=== PATIENT | female | born 1995 | race Caucasian/White ===

== ENCOUNTER 2016-12-26 11:16 | Emergency (ER) | payer BC ==
[~2016-12-26] VITALS: Ht 147.3 cm; Wt 104.5 kg
[~2016-12-26 11:16] MED LIST: BIRTH CONTROL PILLS; CIPRO 100MG TA100 MG PO; CIPRO 500MG TA500 MG PO; FLAGYL500 MG PO; ZOFRAN 4MG T4 MG/TAB PO; [UNRECOGNIZED DRUG - REMARK]
[2016-12-26 11:20] VITALS: BP 136/74; TEMP 99.4
[2016-12-26] MEDS ORDERED: NEXPLANON68 MG ID (11:22)
[2016-12-26 12:09] LABS: HEMOGLOBIN 13.2 g/dl (12.5-16.0); MEAN CELL VOLUME 91 fl (80.0-100.0); MEAN CORPUSCULAR HEMOGLOBIN 31 pg (27.0-31.0); MEAN CORPUSCULAR HGB CONC 34 g/dl (33.0-37.0); MEAN PLATELET VOLUME 10.4 fl (7.4-10.4); PLATELET COUNT 220 K/mm3 (130-400); RED BLOOD COUNT 4.28 M/mm3 (4.10-5.30); REDCELL DISTRIBUTION WIDTH-CV 13.9 % (11.5-14.5); WHITE BLOOD COUNT 5.4 K/mm3 (4.8-10.8)
[2016-12-26 12:11] LABS: ADD PATHOLOGY DIFF REVIEW NO
[2016-12-26 12:23] LABS: ADJUSTED CALCIUM 9.3 mg/dL (8.4-10.2); ALBUMIN 3.9 gm/dL (3.5-5.0); BILIRUBIN,TOTAL 1.5 mg/dL (0.0-1.0); C-REACTIVE PROTEIN 3.3 mg/dL (0.0-0.9); CALCIUM 9.2 mg/dL (8.4-10.2); CREATININE, serum 0.87 mg/dL (0.52-1.25); POTASSIUM 3.8 mmol/L (3.4-5.0); TOTAL PROTEIN 7.2 gm/dL (6.4-8.2)
[2016-12-26 12:29] LABS: BAND 20 % (0-10); EOSINOPHIL 1 % (0-4); NEUTROPHILS 56 % (42.0-75.2); PLATELET ESTIMATE NORMAL (NORMAL); TOTAL CELLS COUNTED 100
[2016-12-26] MEDS ORDERED: CLEOCIN HCL300 MG PO (14:09)
[2016-12-26] MEDS ORDERED: NORCO 325 MG-51 TAB PO (14:09)
[2016-12-26 15:04] VITALS: PULSE 98
[2016-12-30 16:12] LABS: MIC AGAR DILUTION XXX
[2017-01-02] MEDS ORDERED: BACTRIM DS 8001 TAB PO (02:52)
== END 2016-12-26 15:05 | disposition home or self-care (01) ==
LOC: COL.ER 11:16
PROVIDERS: Nurse Practitioner
DX: L02.31 Cutaneous abscess of buttock (principal); Z23 Encounter for immunization
CPT/HCPCS: J3010; Q9967

== ENCOUNTER 2017-08-09 07:55 | Emergency (ER) | payer BC ==
[~2017-08-09] VITALS: Ht 144.8 cm; Wt 100.5 kg
[~2017-08-09 07:55] MED LIST changes: +BACTRIM DS 8001 TAB PO; +CLEOCIN HCL300 MG PO; +NEXPLANON68 MG ID; +NORCO 325 MG-51 TAB PO
[2017-08-09 07:57] VITALS: BP 113/55; TEMP 99.3
[2017-08-09] MEDS ORDERED: PRILOSEC 20MG20 MG PO (08:00)
[2017-08-09] MEDS ORDERED: BACTRIM DS 8001 TAB PO (09:24)
[2017-08-09] MEDS ORDERED: NORCO 325 MG-7.1 TAB PO (09:24)
[2017-08-09 10:05] VITALS: PULSE 70
== END 2017-08-09 10:06 | disposition home or self-care (01) ==
LOC: COL.ER 07:55
DX: K61.1 Rectal abscess (principal)

== ENCOUNTER 2019-02-16 18:39 | Emergency (ER) | payer BC ==
[~2019-02-16] VITALS: Ht 147.3 cm; Wt 95.9 kg
[~2019-02-16 18:39] MED LIST changes: +NORCO 325 MG-7.1 TAB PO; +PRILOSEC 20MG20 MG PO
[2019-02-16 18:52] VITALS: TEMP 99.3
[2019-02-16 20:39] LABS: BASO # 0.1 (0.0-0.2); BASO % 0.5 % (0.0-2.0); EOS # 0.3 (0.0-0.7); GRAN # 5.4 (1.4-6.5); GRAN % 58.1 % (42.2-75.2); HEMATOCRIT 43.7 % (37.0-47.0); HEMOGLOBIN 14.8 g/dl (12.5-16.0); LYMPH # 2.9 (1.2-3.4); LYMPH % 30.6 % (20.0-51.0); MEAN CELL VOLUME 93 fl (80.0-100.0); MEAN CORPUSCULAR HEMOGLOBIN 31 pg (27.0-31.0); MEAN CORPUSCULAR HGB CONC 34 g/dl (33.0-37.0); MEAN PLATELET VOLUME 10.4 fl (7.4-10.4); MONO # 0.7 (0.1-0.6); MONO % 7.6 % (1.7-9.3); PLATELET COUNT 289 K/mm3 (130-400); RED BLOOD COUNT 4.72 M/mm3 (4.10-5.30); REDCELL DISTRIBUTION WIDTH-CV 13.6 % (11.5-14.5)
[2019-02-16] MEDS ORDERED: ASPIRIN 81M81 MG/TA2 PO (20:44)
[2019-02-16 20:53] LABS: ALBUMIN 4.6 gm/dL (3.5-5.0); CALCIUM 9.8 mg/dL (8.4-10.2); CREATININE, serum 0.8 (0.52-1.25); POTASSIUM 3.8 mmol/L (3.4-5.0)
[2019-02-16 21:23] LABS: THYROID STIMULATING HORMONE 2.84 uIU/mL (0.465-4.680)
[2019-02-16 22:36] VITALS: BP 123/57; PULSE 62
== END 2019-02-16 22:36 | disposition home or self-care (01) ==
LOC: COL.ER 18:39
PROVIDERS: Emergency Medicine
DX: R55 Syncope and collapse (principal); Z88.0 Allergy status to penicillin
CPT/HCPCS: J7030

== ENCOUNTER 2019-11-01 08:11 | Emergency (ER) | payer BC ==
[~2019-11-01] VITALS: Ht 147.3 cm; Wt 92.3 kg
[~2019-11-01 08:11] MED LIST changes: +ASPIRIN 81M81 MG/TA2 PO
[2019-11-01 08:16] VITALS: BP 119/60; TEMP 97.5
[2019-11-01] MEDS ORDERED: DOXYCYCLINE 10100 MG PO (09:17)
[2019-11-01 09:38] VITALS: PULSE 70
[2019-11-03] MEDS ORDERED: SEPTRA DS 8001 TAB PO (17:00)
== END 2019-11-01 09:39 | disposition home or self-care (01) ==
LOC: COL.ER 08:11
DX: K61.1 Rectal abscess (principal); F17.210 Nicotine dependence, cigarettes, uncomplicated; Z88.0 Allergy status to penicillin; Z88.1 Allergy status to other antibiotic agents

== ENCOUNTER 2020-10-12 05:04 | Emergency (ER) | payer BC ==
[~2020-10-12] VITALS: Ht 147.3 cm; Wt 95.5 kg
[~2020-10-12 05:04] MED LIST changes: +DOXYCYCLINE 10100 MG PO; +SEPTRA DS 8001 TAB PO
[2020-10-12 05:07] VITALS: TEMP 98.2
[2020-10-12 05:24] LABS: BASO # 0.1 (0.0-0.2); BASO % 0.6 % (0.0-2.0); EOS # 0.7 (0.0-0.7); GRAN # 5.4 (1.4-6.5); HEMATOCRIT 45.2 % (37.0-47.0); HEMOGLOBIN 15.2 g/dl (12.5-16.0); LYMPH # 3.3 (1.2-3.4); MEAN CELL VOLUME 94 fl (80.0-100.0); MEAN CORPUSCULAR HEMOGLOBIN 32 pg (27.0-31.0); MEAN CORPUSCULAR HGB CONC 34 g/dl (33.0-37.0); MEAN PLATELET VOLUME 10.2 fl (7.4-10.4); MONO # 0.8 (0.1-0.6); MONO % 8.1 % (1.7-9.3); PLATELET COUNT 329 K/mm3 (130-400); REDCELL DISTRIBUTION WIDTH-CV 13.2 % (11.5-14.5)
[2020-10-12 05:32] LABS: ALBUMIN 4.6 gm/dL (3.5-5.0); BILIRUBIN,TOTAL 0.7 mg/dL (0.0-1.0); CREATININE, serum 0.8 (0.52-1.25); POTASSIUM 4.1 mmol/L (3.4-5.0); TOTAL PROTEIN 7.5 gm/dL (6.4-8.2)
[2020-10-12 06:10] LABS: COLLECTION METHOD CLEAN CATCH
[2020-10-12 06:19] LABS: MUCOUS Present /lpf; PH 5 (5-8); SQUAMOUS EPITHELIAL 0-2 /hpf; URINE APPEARANCE Hazy; URINE BACTERIA Rare /hpf; URINE BILIRUBIN Negative (NEGATIVE); URINE BLOOD 3+ (NEGATIVE); URINE COLOR Yellow; URINE GLUCOSE Negative (NEGATIVE); URINE KETONE Negative (NEGATIVE); URINE LEUKOCYTE ESTERASE Negative (NEGATIVE); URINE NITRATE Negative (NEGATIVE); URINE PROTEIN(semi-quant) 1+ (NEGATIVE); URINE RBC >50 /hpf; URINE UROBILINOGEN Negative (NEGATIVE)
[2020-10-12] MEDS ORDERED: GLUCOPHAGE500 MG/TAB PO (06:57)
[2020-10-12] MEDS ORDERED: NORCO 325 MG-51 TAB PO ×2 (08:32→16:34)
[2020-10-12] MEDS ORDERED: ZOFRAN ODT4 MG PO (08:32)
[2020-10-12] MEDS ORDERED: FLOMAX 0.40.4 MG/CAP PO ×2 (08:32→16:34)
[2020-10-12 08:42] VITALS: BP 123/81; PULSE 68
== END 2020-10-12 08:44 | disposition home or self-care (01) ==
LOC: COL.ER 05:04
PROVIDERS: Emergency Medicine
DX: N13.2 Hydronephrosis with renal and ureteral calculous obstruction (principal); Z32.02 Encounter for pregnancy test, result negative; Z88.0 Allergy status to penicillin; Z88.1 Allergy status to other antibiotic agents; Z91.048 Other nonmedicinal substance allergy status; Z79.84 Long term (current) use of oral hypoglycemic drugs
CPT/HCPCS: J1170; J1885; J2270; J2405; J3010; J7030

== ENCOUNTER 2020-10-12 16:16 | Emergency (ER) | payer BC ==
[~2020-10-12] VITALS: Ht 147.3 cm; Wt 95.5 kg
[~2020-10-12 16:16] MED LIST changes: +FLOMAX 0.40.4 MG/CAP PO; +GLUCOPHAGE500 MG/TAB PO; +ZOFRAN ODT4 MG PO
[2020-10-12 16:18] VITALS: TEMP 97
[2020-10-12] MEDS ORDERED: NORCO 325 MG-51 TAB PO (16:34)
[2020-10-12] MEDS ORDERED: FLOMAX 0.40.4 MG/CAP PO (16:34)
[2020-10-12 16:58] VITALS: BP 136/88; PULSE 69
== END 2020-10-12 17:00 | disposition home or self-care (01) ==
LOC: COL.ER 16:16
DX: N20.0 Calculus of kidney (principal); F17.200 Nicotine dependence, unspecified, uncomplicated; Z88.0 Allergy status to penicillin; Z88.1 Allergy status to other antibiotic agents; Z79.84 Long term (current) use of oral hypoglycemic drugs

== ENCOUNTER → 2020-12-29 | Outpatient (CLI) | payer OTHER ==
[~2020-12-29] MED LIST changes: +PREDNISONE20 MG PO
== END ==
LOC: ZCOL.LAB 16:32
DX: K61.0 Anal abscess (principal)

== ENCOUNTER 2021-01-01 03:19 | Emergency (ER) | payer OTHER ==
[~2021-01-01] VITALS: Ht 147.3 cm; Wt 95.9 kg
[~2021-01-01 03:19] MED LIST changes: -PREDNISONE20 MG PO
[2021-01-01 03:30] VITALS: TEMP 98.7
[2021-01-01] MEDS ORDERED: PREDNISONE20 MG PO (04:19)
[2021-01-01 05:34] VITALS: BP 135/79; PULSE 96
== END 2021-01-01 05:37 | disposition home or self-care (01) ==
LOC: COL.ER 03:19
DX: J40 Bronchitis, not specified as acute or chronic (principal); F17.200 Nicotine dependence, unspecified, uncomplicated; Z20.822 Contact with and (suspected) exposure to COVID-19; Z88.0 Allergy status to penicillin; Z79.84 Long term (current) use of oral hypoglycemic drugs
CPT/HCPCS: J7512

== ENCOUNTER 2021-09-11 19:12 | Emergency (ER) | payer OTHER ==
[~2021-09-11] VITALS: Ht 147.3 cm; Wt 95.5 kg
[~2021-09-11 19:12] MED LIST changes: +PREDNISONE20 MG PO
[2021-09-11 21:02] LABS: BASO # 0.1 K/mm3 (0.0-0.2); BASO % 0.5 % (0.0-2.0); EOS # 0.4 K/mm3 (0.0-0.7); EOS % 3.8 % (0-4.0); GRAN # 7.4 K/mm3 (1.4-6.5); GRAN % 72.9 % (42.2-75.2); HEMATOCRIT 46.4 % (37.0-47.0); HEMOGLOBIN 15.5 g/dl (12.5-16.0); LYMPH # 1.7 K/mm3 (1.2-3.4); MEAN CELL VOLUME 92 fl (80.0-100.0); MEAN CORPUSCULAR HEMOGLOBIN 31 pg (27.0-31.0); MEAN CORPUSCULAR HGB CONC 33 g/dl (33.0-37.0); MEAN PLATELET VOLUME 10.3 fl (7.4-10.4); MONO # 0.6 K/mm3 (0.1-0.6); MONO % 5.5 % (1.7-9.3); PLATELET COUNT 298 K/mm3 (130-400); RED BLOOD COUNT 5.03 M/mm3 (4.10-5.30); REDCELL DISTRIBUTION WIDTH-CV 13.6 % (11.5-14.5)
[2021-09-11 21:18] LABS: ALBUMIN 4.1 gm/dL (3.5-5.0); CALCIUM 9.5 mg/dL (8.4-10.2); CREATININE, serum 0.91 mg/dL (0.57-1.11); POTASSIUM 4.3 mmol/L (3.5-4.5); TOTAL PROTEIN 7.4 gm/dL (6.2-8.1)
[2021-09-11 22:25] VITALS: TEMP 98.6
[2021-09-12 00:07] VITALS: BP 148/75; PULSE 50
== END 2021-09-12 00:07 | disposition home or self-care (01) ==
LOC: COL.ER 19:12
PROVIDERS: Family Medicine
DX: U07.1 COVID-19 (principal); F17.200 Nicotine dependence, unspecified, uncomplicated; Z73.0 Burn-out; Z88.0 Allergy status to penicillin
CPT/HCPCS: J2405; J7120; Q0244